=== PATIENT | male | born 1960 | race Caucasian/White ===

== ENCOUNTER 2019-03-27 20:59 | Emergency (ER) | payer OTHER ==
[~2019-03-27] VITALS: Ht 175.3 cm; Wt 74.8 kg
[2019-03-27 21:06] VITALS: BP 153/87
--- NOTE | 2019-03-27 22:03 | NUR ---
Dr. Calvin examining patient.
--- NOTE | 2019-03-27 22:05 | NUR ---
58 Y/O MALE PRESENTS TO ED, C/O RIGHT GREAT TOE AND LEFT ANKLE PAIN. PT STATES HAVING WOUNDS ON AFFECTED EXTREMITY X1 MONTH AGO. STATES PAIN IS 10/10 DURING MOVEMENT AND 5/10 WITHOUT MOVEMENT. PT HAS HX OF DM AND COMPLIANT WITH MEDICATION BUT NOT DIET. PT ABLE TO AMBULATE WITH STEADY GAIT BUT WITH PAIN. NO MEDICATIONS TAKEN PRIOR COMING TO ED. PT VSS. ERMD AWARE. WILL CONTINUE TO MONITOR.
[2019-03-27 22:24] VITALS: BP 153/87
--- NOTE | 2019-03-27 22:24 | NUR ---
PT DISCHARGED WITH PAPERWORK. EDUCATED PT REGARDING MEDICATIONS AND D/C INSTRUCTIONS. PT VERBALIZED UNDERSTANDING OF TEACHING. TOLD PT TO FOLLOW UP WITH PCP AND WHEN TO RETURN TO ED. PT STABLE CONDITION. ALL QUESTIONS ANSWERED.
== END 2019-03-27 22:24 | disposition home or self-care (01) ==
LOC: MED 20:59
DX: L97.529 Non-pressure chronic ulcer of other part of left foot with unspecified severity (principal); L97.519 Non-pressure chronic ulcer of other part of right foot with unspecified severity; E11.9 Type 2 diabetes mellitus without complications; I10 Essential (primary) hypertension; F17.210 Nicotine dependence, cigarettes, uncomplicated; Z98.890 Other specified postprocedural states
CPT/HCPCS: 99283

== ENCOUNTER 2019-06-03 17:45 | Emergency (ER) | payer MEDICARE, OTHER ==
[~2019-06-03] VITALS: Ht 175.3 cm; Wt 79.4 kg
[2019-06-03 17:54] VITALS: BP 153/108
[2019-06-03] MEDS ORDERED: NACL 0.9% 1,000 ML IV ONE ×2 (18:05→19:05)
[2019-06-03] MEDS ORDERED: INSULIN REGULAR, HUMAN 100 UNIT/ML VIAL SUBQ ONE (18:05)
--- NOTE | 2019-06-03 18:10 | NUR ---
PT C/O ROTTEN TEETH. MOUTH PAIN WITH NOTABLE SWELLING TO FACE PER PT. HAS NOT BEEN ABLE TO MAKE APPT WITH DENTIST OF YET FULL CLEAR SPEECH, NO DROOLING, NO ACCESSORY MUSCLE USE NOTED. PT ALSO C/O FATIGUE, DRY MOUTH, EXCESSIVE THIRSTY FOR ONE WEEK AND ABDOMINAL PAIN 3 DAYS AGO BUT NOT AT THIS TIME. DENIES N/V/D, DIZZINESS OR HEADLEY. REPORTS BEEN OFF OF MEDS OF DM AND HTN FOR MORE THAN ONE MONTH DUE TO CHANGE A PCP. HR EVEN AND REGULAR; PT DENIES ANY FEVER, CP, SOB, COUGH, RECENT TRAVEL, OR SICK CONTACT; PATIENT STATES TOOTHACHE OF 10/10 AT THIS TIME; VSS; PATIENT POSITIONED FOR COMFORT; HOB ELEVATED; BEDRAILS UP X2; BED DOWN. ER MD MADE AWARE OF PT STATUS. PT IS ON MONITOR WILL CONTINUE MONITOR HIS VITAL SIGNS.
[2019-06-03 18:49] LABS: BASOPHILS # (AUTO) 0.1 K/uL (0.00-0.22); BASOPHILS % (AUTO) 0.5 % (0.0-2.0); EOSINOPHILS # (AUTO) 0.2 K/uL (0-0.4); EOSINOPHILS % (AUTO) 0.9 % (0.0-4.0); HEMATOCRIT 48.4 % (36-52); HEMOGLOBIN 16.4 g/dL (12.0-18.0); LYMPHOCYTES # (AUTO) 2.1 K/uL (2.0-11.5); LYMPHOCYTES % (AUTO) 11.2 % (20.5-51.1); MEAN CORPUSCULAR HEMOGLOBIN 32 pg (27-31); MEAN CORPUSCULAR HGB CONC 34 g/dL (33-37); MEAN CORPUSCULAR VOLUME 95.4 fL (80-94); MONOCYTES # (AUTO) 2.2 K/uL (0.8-1.0); MONOCYTES % (AUTO) 11.8 % (1.7-9.3); NEUTROPHILS # (AUTO) 14.3 K/uL (1.8-7.7); NEUTROPHILS % (AUTO) 75.6 % (42.2-75.2); PLATELET COUNT (AUTO) 225 K/uL (140-450); RED BLOOD CELL COUNT(AUTO) 5.07 MIL/uL (4.20-6.10); RED CELL DISTRIBUTION WIDTH 12.9 % (11.6-13.7); WHITE BLOOD COUNT (AUTO) 18.9 K/uL (4.8-10.8)
--- NOTE | 2019-06-03 19:08 | NUR ---
TRANSFER OF CARE REPORT GIVEN BY TIMOTEO NG.
[2019-06-03] MEDS ORDERED: INSULIN REGULAR, HUMAN 100 UNIT/ML VIAL IVP ONE (19:10)
[2019-06-03 19:12] LABS: ALBUMIN 3.7 g/dL (3.4-5.0); ANION GAP 14.8 (8-16); CARBON DIOXIDE 26.5 mmol/L (21-32); CREATININE 2.2 mg/dL (0.6-1.3); POTASSIUM 4.3 mmol/L (3.5-5.1); TOTAL BILIRUBIN 0.3 mg/dL (0.0-1.0)
--- NOTE | 2019-06-03 19:14 | NUR ---
Pt report given to BERENICE Aguilar. Transfer of care at this time.
[2019-06-03 19:15] LABS: APPEARANCE,URINE CLEAR (CLEAR); BILIRUBIN,URINE NEGATIVE (NEGATIVE); BLOOD, URINE NEGATIVE (NEGATIVE); COLOR,URINE YELLOW (YELLOW); LEUKOCYTE ESTERASE ,URINE NEGATIVE (NEGATIVE); NITRITE, URINE NEGATIVE (NEGATIVE); PH,URINE 5.5 (5.0-9.0); UGLUCOSE 3+ (NEGATIVE)
--- NOTE | 2019-06-03 19:31 | NUR ---
VSS. GLUCOSE DECREASED FROM >600 TO 530. SECOND DOSE OF INSULIN ADMINISTERED. PT TOLERATED PROCEDURE WELL. NO FURTHER NEEDS AT THIS TIME.
--- NOTE | 2019-06-03 19:51 | NUR ---
ERMD BEDSIDE EVALUATING PT
--- NOTE | 2019-06-03 19:53 | NUR ---
DR ALARCON AT BEDSIDE EVALUATING PATIENT.
--- NOTE | 2019-06-03 19:57 | NUR ---
pt. reports of 11/[address] Sena notified.
[2019-06-03] MEDS ORDERED: KETOROLAC 30 MG/ML VIAL IVP ONE (20:05)
[2019-06-03] MEDS ORDERED: CLINDAMYCIN 900 MG in DEXTROSE 5% 100 ML IV ONE (20:05)
[2019-06-03 20:09] LABS: BARBITURATE, URINE NEGATIVE ng/ml (NEG <=200); BENZODIAZEPINE, URINE NEGATIVE ng/mL (NEG <=200); CANNABINOID, URINE NEGATIVE ng/mL (NEG <=50); COCAINE, URINE NEGATIVE ng/mL (NEG <=300)
[2019-06-03 20:10] LABS: OPIATE, URINE NEGATIVE ng/mL (NEG <=2000); PHENCYCLIDINE SCREEN,URINE NEGATIVE ng/mL (NEG <=25)
[2019-06-03] MEDS ORDERED: CLINDAMYCIN 900 MG/6 ML VIAL IV ONE (20:10)
--- NOTE | 2019-06-03 20:36 | NUR ---
pt fbs decreased from >500 to 269 after evaluation of second dose of insulin. pt. medicated with toradol for pain and reports lessening pain. no further needs at this time. bed at lowest and locked, rails up x 1
--- NOTE | 2019-06-03 21:33 | NUR ---
Patient discharged with v/s stable. Written and verbal after care instructions given and explained. Patient alert, oriented and verbalized understanding of instructions. Ambulatory with steady gait. All questions addressed prior to discharge. ID band removed. Patient advised to follow up with PMD. Rx of TRAMADOL, AMOXICILLIN, MOTRIN given. Patient educated on indication of medication including possible reaction and side effects. Opportunity to ask questions provided and answered.
[2019-06-03 21:34] VITALS: BP 142/84
--- NOTE | 2019-06-04 11:09 | NUR ---
Late entry. Confirmed with RN that 0.9 NS IV completed at 2005
== END 2019-06-03 21:33 | disposition home or self-care (01) ==
LOC: MED 17:45
DX: K04.7 Periapical abscess without sinus (principal); F17.210 Nicotine dependence, cigarettes, uncomplicated; E11.9 Type 2 diabetes mellitus without complications; I10 Essential (primary) hypertension; E03.9 Hypothyroidism, unspecified; Z71.6 Tobacco abuse counseling; Z90.49 Acquired absence of other specified parts of digestive tract; Z98.890 Other specified postprocedural states
CPT/HCPCS: 36415; 80053; 80305; 81003; 82948; 85025; 93005; 96365; 96372; 96375; 99284; J1815; J1885; J3490; J7030

== ENCOUNTER 2019-11-26 19:29 | Emergency (ER) | payer MEDICARE ==
[~2019-11-26] VITALS: Ht 175.3 cm; Wt 74.8 kg
[2019-11-26 19:49] VITALS: BP 122/77
--- NOTE | 2019-11-26 19:52 | NUR ---
w/c to ED bed 12.
--- NOTE | 2019-11-26 19:53 | NUR ---
58 M bib self for c/o penile pain x 3 days. pt aox4 slow to respond. lungs clear even unlabored, pt denies fever chills @ this time. able to void but with difficulty. skin warm dry pink intact. no drainage noted. hx: chronic back pain rx: norco ax: nka
[2019-11-26] MEDS: KETOROLAC 30 MG/ML VIAL IM ONE (20:25)
[2019-11-26 22:03] LABS: BARBITURATE, URINE NEGATIVE ng/ml (NEG <=200); BENZODIAZEPINE, URINE NEGATIVE ng/mL (NEG <=200); CANNABINOID, URINE NEGATIVE ng/mL (NEG <=50); COCAINE, URINE NEGATIVE ng/mL (NEG <=300); OPIATE, URINE NEGATIVE ng/mL (NEG <=2000); PHENCYCLIDINE SCREEN,URINE NEGATIVE ng/mL (NEG <=25)
[2019-11-26 22:15] VITALS: BP 118/85
--- NOTE | 2019-11-26 22:53 | NUR ---
Patient discharged with v/s stable. Written and verbal after care instructions given and explained. Patient alert, oriented and verbalized understanding of instructions. Ambulatory with steady gait. All questions addressed prior to discharge. ID band removed. Patient advised to follow up with PMD. Rx of NAPROXEN AND BACITRACIN given. Patient educated on indication of medication including possible reaction and side effects. Opportunity to ask questions provided and answered.
== END 2019-11-26 22:15 | disposition home or self-care (01) ==
LOC: MED 19:29
DX: M10.9 Gout, unspecified (principal); K12.1 Other forms of stomatitis; E11.9 Type 2 diabetes mellitus without complications; E03.9 Hypothyroidism, unspecified; I10 Essential (primary) hypertension; Z90.49 Acquired absence of other specified parts of digestive tract
CPT/HCPCS: 80305; 96372; 99283; J1885